=== PATIENT | male | born 1945 | race Two or more races ===

== ENCOUNTER 2019-03-01 11:48 | Emergency (ER) | payer OTHER ==
[~2019-03-01] VITALS: Ht 165.1 cm; Wt 68.0 kg
[~2019-03-01 11:48] MED LIST: COZ25; DRAMAMINE LESS25 MG PO; LIPITOR40 MG PO; LOSARTAN POTASS1 TAB PO
[2019-03-01 12:01] VITALS: Ht 165.1 cm; Wt 68.0 kg
[2019-03-01 12:54] VITALS: BP 135/65
== END 2019-03-01 12:54 | disposition home or self-care (01) ==
LOC: ED 11:48
DX: M79.601 Pain in right arm (principal); K64.9 Unspecified hemorrhoids; I10 Essential (primary) hypertension
CPT/HCPCS: J1885